=== PATIENT | female | born 1970 | race Two or more races ===

== ENCOUNTER 2017-04-18 10:52 | Emergency (ER) | payer SELFPAY ==
[~2017-04-18] VITALS: Ht 160 cm; Wt 41.9 kg
[~2017-04-18 10:52] MED LIST: NAPROXEN500 MG PO
[2017-04-18] MEDS ORDERED: INDOCIN50 MG PO (14:46)
[2017-04-18 15:27] VITALS: BP 113/85
[2017-04-19 14:39] LABS: LYME DISEASE SEROLOGY SCREEN NEGATIVE (NEGATIVE)
== END 2017-04-18 15:28 | disposition home or self-care (01) ==
LOC: EME 10:52
PROVIDERS: Physician Assistant
DX: M19.042 Primary osteoarthritis, left hand (principal); M19.041 Primary osteoarthritis, right hand; M79.89 Other specified soft tissue disorders; Z88.0 Allergy status to penicillin
CPT/HCPCS: 73130; 73140; 73610; 85651; 86140; 86618; 99281; 99283